=== PATIENT | male | born 1975 | race Caucasian/White ===

== ENCOUNTER 2024-08-16 10:27 | Emergency (ER) | payer BC, SELFPAY ==
[2024-08-16 10:32] VITALS: BP 183/114
--- NOTE | 2024-08-16 11:24 | ED.GENMED ---
History of Present Illness
General
Chief Complaint: Musculo-Skeletal Complaint
Time Seen by Provider: 08/16/24 10:55
History of Present Illness
History of Present Illness:
49-year-old male presents to the emergency department for evaluation of ongoing and worsening right gluteal and posterior leg pain for the past 2 months. He was initially seen at urgent care and started on steroids and tramadol which provided
minimal to no relief of pain. After a short course he saw his the urgent care again and was given a course of Neurontin plus steroids plus tramadol with transient improvement in symptoms. He also saw a chiropractor and had x-rays that showed no
lumbar pathology. He scheduled for a lumbar MRI in 1 month but at this point is been unable to control pain pattern. At the initial onset of symptoms he was seen in the ER at [facility] and had an ultrasound of the right lower extremity
that was negative for DVT. Pain is primarily localized to the superior buttocks and radiates down the posterior leg to the foot. Is worse with attempting to sit upright. He has minimal to no low back pain.
Review of Systems
Review of Systems
Allergies reviewed?: Yes
All Other Systems: ROS reviewed and negative except as documented in HPI and ROS
Phy Exam
Physical Exam
Physical Exam:
GEN: Well appearing, NAD, WDWN
HEENT: Oral mucosa moist, no scleral icterus
Cardiac: Regular rate
Lung: No respiratory distress, no tachypnea
MSK: No gross deformity or injuries. No midline lumbar or paraspinous lumbar tenderness. Right hip passive range of motion is normal however pain is elicited with forced external rotation of the hip as well as with straight leg raise.
Skin: Good color, no pallor or jaundice, no rashes
Neuro: AO x3, moves all extremities freely
Psych: Calm, cooperative
Course
Vital Signs
Initial and Last Documented VS:
Initial Vital Signs
Temp Pulse Resp BP Pulse Ox
98.5 F 85 18 183/114 98
08/16/24 10:32 08/16/24 10:32 08/16/24 10:32 08/16/24 10:32 08/16/24 10:32
Last Documented Vital Signs
Temp Pulse Resp BP Pulse Ox
98.5 F 85 18 161/118 98
08/16/24 10:32 08/16/24 10:32 08/16/24 10:32 08/16/24 11:35 08/16/24 10:32
MDM/Problems Addressed
MDM/Problems Addressed:
Certainly could be a lumbar radiculopathy on the basis of his radiating symptoms however he does not have any low back pain to suggest this is the source. I suspect this is piriformis syndrome versus a proximal hamstring tendinosis, but advised
against further steroid medications until MRI at this time, will prescribe Celebrex and supportive medications tramadol and Neurontin as these worked in the past. He is encouraged to seek outpatient physical therapy for further improvement
*Critical Care Note
Total Time (30-74mins, 75-104mins- exclusive of procedures): Not Applicable
ED Attending Note
-
Portions of this chart may have been created with voice recognition software.� Occasional wrong word or��sound alike� substitutions may have occurred due to the inherent limitations of voice recognition software.
Discharge Plan
Departure
Patient Disposition: Home (Routine Discharge)
Date of Disposition: 08/16/24
Time of Disposition: :24
Patient with high blood pressure during this ER visit?: No
Discharge Problem:
Radiculopathy with lower extremity symptoms
Instructions: Sciatica ED
Prescriptions:
New
tramadol 50 mg tablet
50 mg PO Q8H PRN (Reason: Pain) Qty: 12 0RF
celecoxib [Celebrex] 200 mg capsule
200 mg PO BID Qty: 20 0RF
gabapentin 300 mg capsule
300 mg PO TID Qty: 30 0RF
Activity Restrictions/Additional Instructions:
Do the [employer] 'Big 3' Exercises each morning before work
Interventions
Interventions:
*Risk Screen - Suicide Last Done: 08/16/24 10:38
*General Assessment Last Done: 08/16/24 11:22
*Neglect/Abuse Screening Last Done: 08/16/24 10:38
ED- Fall Risk Assessment Last Done: 08/16/24 11:22
*ED COVID-19 Vaccine History Last Done: 08/16/24 11:22
*Nursing Disposition Last Done: 08/16/24 11:38
ED-Musculoskeletal Assessment Last Done: 08/16/24 11:22
Discharge Date and Time
Discharge Date/Time: 08/16/24 11:39
Print Language: ARMENIAN
[2024-08-16 11:35] VITALS: BP 161/118
== END 2024-08-16 11:39 | disposition home or self-care (01) ==
LOC: EMR 10:27
PROVIDERS: EMERGENCY PHYSICIAN Emergency Medicine; FAMILY PHYSICIAN Family Medicine
DX: M54.10 Radiculopathy, site unspecified (principal)
CPT/HCPCS: 99282